=== PATIENT | female | born 1965 | race American Indian/Alaskan Native ===

== ENCOUNTER 2016-07-16 09:26 | Outpatient (CLI) | payer MEDICAID ==
--- NOTE | 2016-07-16 11:58 | Ultrasound Report ---
Pelvic ultrasound: Endovaginal and transabdominal imaging demonstrates an anteverted uterus measuring 5.9 x 7.1 x 10.6 cm. There is a heterogeneously hypoechoic mass in the fundus measuring 5.9 cm. The endometrium is echogenically unremarkable with a width of 10.1 mm. The right ovary measures 2.4 cm and is echogenically normal. The left ovary measures 2.7 cm and contains a 9 mm follicle/cyst. There is minimal free fluid present. Impression: Uterine fibroid.
== END 2016-07-16 09:27 | disposition home or self-care (01) ==
LOC: US 09:26
PROVIDERS: ATTEND Urology
DX: D25.9 Leiomyoma of uterus, unspecified (principal); N83.202 Unspecified ovarian cyst, left side; R10.2 Pelvic and perineal pain
CPT/HCPCS: 76830; 76856

== ENCOUNTER 2016-12-07 08:47 | Emergency (ER) | payer MEDICAID ==
[2016-12-07 08:56] VITALS: BP 146/109
[2016-12-07 09:32] LABS: Anion Gap 16 mmol/L; Blood Urea Nitrogen 14 mg/dL (7-17); Carbon Dioxide 23 mmol/L (22-30); Chloride 103.7 mmol/L (98-107); Glucose 87 mg/dL (65-100); Potassium 4.1 mmol/L (3.6-5.0); Sodium 139 mmol/L (137-145)
[2016-12-07 09:37] LABS: Basophils % (Auto) 1.3 % (0.0-1.8); Hematocrit 36.5 % (30.3-42.9); Hemoglobin 11.8 gm/dl (10.1-14.3); Mean Corpuscular HGB Conc 32 % (30-34); Mean Corpuscular Hemoglobin 28 pg (28-32); Mean Corpuscular Volume 86 fl (79-97); Platelet Count 312 K/mm3 (140-440); Red Blood Count 4.25 M/mm3 (3.65-5.03); Red Cell Distribution Width 16.8 % (13.2-15.2); White Blood Count 6.3 K/mm3 (4.5-11.0)
== END 2016-12-07 11:17 | disposition left against medical advice (07) ==
LOC: ED 08:47
DX: R07.9 Chest pain, unspecified (principal); Z53.21 Procedure and treatment not carried out due to patient leaving prior to being seen by health care provider
CPT/HCPCS: 36415; 80048; 84484; 85025

== ENCOUNTER 2018-10-16 10:22 | Emergency (ER) | payer SELFPAY ==
[2018-10-16 10:50] VITALS: BP 154/98
== END 2018-10-16 13:42 | disposition left against medical advice (07) ==
LOC: ED 10:22
DX: M79.644 Pain in right finger(s) (principal); Z53.21 Procedure and treatment not carried out due to patient leaving prior to being seen by health care provider